=== PATIENT | male | born 1945 | race Caucasian/White ===

== ENCOUNTER 2019-06-11 12:36 | Inpatient (IN) | payer MEDICARE ==
[~2019-06-11] VITALS: Ht 165.1 cm; Wt 54.4 kg
--- NOTE | 2019-06-11 12:54 | NUR ---
Placed in room 6. Placed on electronic device monitor, blood pressure machine and pulse oximeter. To gown for exam. Side rails up.
[2019-06-11 12:55] VITALS: BP_SYST 144
--- NOTE | 2019-06-11 13:00 | NUR ---
Patient is awake, alert, and oriented x1. When attempting to assess the patient her responded with, "Fuck you" and started rambling incoherently. Patient refused to take clothes off and get into gown. He told the EMT, "Don't fucking touch me" when attempting to remove clothing for gown. Addendum: 06/11/19 at 1307 by BECKY Patient was sent from [facility] by Dr. Brumfield for evaluation due to increased ALOC and decline in ADLs. Patient was found wandering into a female patient's room last night and urinated on her floor. He also urinated on the floor of his room and threatened to kill his roommate. Today patient had reduced appetite and fluid intake.
--- NOTE | 2019-06-11 13:25 | NUR ---
ER Dr. Mooney at bedside examining patient.
[2019-06-11] MEDS ORDERED: TAMS-11 PO (13:29)
[2019-06-11] MEDS ORDERED: GABA300T25 PO (13:29)
[2019-06-11] MEDS ORDERED: POLY17PO4 PO (13:29)
[2019-06-11] MEDS ORDERED: ONDA4TAB11 SL (13:29)
[2019-06-11] MEDS ORDERED: THIA100T73 PO (13:29)
[2019-06-11] MEDS ORDERED: METH500T PO (13:29)
[2019-06-11] MEDS ORDERED: DUL5 PO (13:29)
[2019-06-11] MEDS ORDERED: MULT-1117 PO (13:29)
[2019-06-11] MEDS ORDERED: MUC20RT NEB (13:29)
[2019-06-11] MEDS ORDERED: DOCU100T9 PO (13:29)
[2019-06-11] MEDS ORDERED: TRIA15CR3 TD (13:29)
[2019-06-11] MEDS ORDERED: QUET50TA79 PO (13:29)
[2019-06-11] MEDS ORDERED: LEVO75TA98 PO (13:29)
[2019-06-11] MEDS ORDERED: LABE100T6 PO (13:29)
[2019-06-11] MEDS ORDERED: FOLI-43 PO (13:29)
[2019-06-11] MEDS ORDERED: MELA5TAB21 PO (13:29)
[2019-06-11] MEDS ORDERED: ACET325C6 PO (13:29)
[2019-06-11] MEDS ORDERED: SER25 PO (13:29)
[2019-06-11] MEDS ORDERED: AMLO10TA88 PO (13:29)
[2019-06-11] MEDS ORDERED: CALC-1100 PO (13:29)
--- NOTE | 2019-06-11 13:29 | NUR ---
Medication reconciliation completed with information provided by [facility]. Any prior medication reconciliation on file was reviewed and corrected.
[2019-06-11] MEDS ORDERED: DIPHENHYDRAMINE INJ 50 MG/ML VIAL IM ONE (13:45)
[2019-06-11] MEDS ORDERED: HALOPERIDOL LACTATE 5 MG/ML VIAL IM ONE (13:45)
--- NOTE | 2019-06-11 13:52 | NUR ---
Administered Benadryl and Haldol IM as ordered by Dr. Mooney. Patient tolerated the medication well. See eMAR for details.
--- NOTE | 2019-06-11 14:12 | NUR ---
Urine specimen collected.
[2019-06-11 14:43] LABS: BILIRUBIN,URINE NEGATIVE (NEGATIVE); BLOOD, URINE NEGATIVE (NEGATIVE); CLARITY/URINE CLEAR (CLEAR); COLOR,URINE YELLOW (YELLOW); GLUCOSE,URINE NEGATIVE (NEGATIVE); KETONES,URINE NEGATIVE (NEGATIVE); LEUKOCYTE ESTERASE ,URINE NEGATIVE (NEGATIVE); NITRITE, URINE NEGATIVE (NEGATIVE); PH,URINE 6.5 (5.0-8.0); PROTEIN URINE NEGATIVE (NEGATIVE); UROBILINOGEN,URINE 0.2 (0.2-1.0)
[2019-06-11] MEDS ORDERED: KETAMINE 30 MG/3 ML SYRINGE IM ONE (14:45)
--- NOTE | 2019-06-11 15:10 | NUR ---
Administered Ketamine IM as ordered by Dr. Mooney. Patient tolerated the medication well. See eMAR for details.
--- NOTE | 2019-06-11 15:45 | NUR ---
Administered Ketamine IVP as ordered by Dr. Mooney. Patient tolerated the medication well. See eMAR for details.
[2019-06-11] MEDS ORDERED: KETAMINE 30 MG/3 ML SYRINGE IVP ONE (16:00)
[2019-06-11 17:26] LABS: ANION GAP 8 (5-15); BASOPHILS # (AUTO) 0.1 K/uL (0.0-0.2); BASOPHILS % (AUTO) 1.2 % (0.0-2.0); CALCIUM 9.2 mg/dL (8.4-11.0); CHLORIDE 102 mmol/L (98-107); CREATININE 0.76 mg/dL (0.55-1.30); EOSINOPHILS # (AUTO) 0.2 K/uL (0.0-0.4); EOSINOPHILS % (AUTO) 3.8 % (0.0-4.0); GLUCOSE 94 mg/dL (70-99); HEMATOCRIT 36.1 % (36-54); HEMOGLOBIN 11.4 g/dL (14.0-18.0); LYMPHOCYTES # (AUTO) 1.2 K/uL (1.0-5.5); LYMPHOCYTES % (AUTO) 28.2 % (20.5-51.5); MEAN CORPUSCULAR HEMOGLOBIN 23 pg (27-31); MEAN CORPUSCULAR HGB CONC 32 % (32-36); MEAN CORPUSCULAR VOLUME 74 fL (79.0-98.0); MONOCYTES # (AUTO) 0.4 K/uL (0.0-1.0); MONOCYTES % (AUTO) 9.4 % (1.7-9.3); NEUTROPHILS # (AUTO) 2.4 K/uL (1.8-7.7); NEUTROPHILS % (AUTO) 57.4 % (40.0-70.0); PLATELET COUNT (AUTO) 311 K/uL (130-430); POTASSIUM 4.1 mmol/L (3.5-5.1); RED BLOOD CELL COUNT(AUTO) 4.89 MIL/uL (4.2-6.2); RED CELL DISTRIBUTION WIDTH 17.6 % (9.0-15.0); SODIUM SERUM 139 mmol/L (136-145); UREA NITROGEN, BLOOD 14 mg/dL (8-21); WHITE BLOOD COUNT (AUTO) 4.2 K/uL (4.8-10.8)
[2019-06-11 17:30] LABS: INR 1.1 (0.80-1.20); PROTHROMBIN TIME 10.7 SECS (9.5-12.5)
[2019-06-11 17:31] LABS: ALANINE AMINOTRANSFERASE 17 U/L (12-78); ALBUMIN 3.5 g/dL (3.4-4.8); ASPARTATE AMINOTRANSFERASE 17 U/L (10-37); TOTAL BILIRUBIN 0.3 mg/dL (0.0-1.0)
[2019-06-11 17:32] LABS: ALCOHOL, BLOOD < 3 mg/dL (<10)
--- NOTE | 2019-06-11 18:10 | NUR ---
Administered Haldol IVP as ordered by Dr. Mooney. Patient tolerated the medication well. See eMAR for details.
[2019-06-11] MEDS ORDERED: HALOPERIDOL LACTATE 5 MG/ML VIAL IVP ONE (18:15)
--- NOTE | 2019-06-11 18:15 | NUR ---
Administered Ketamine 30mg IVP as ordered by Dr. Mooney. Patient tolerated the medication well. See eMAR for details.
--- NOTE | 2019-06-11 18:18 | NUR ---
Patient is taken to CT via gurney, in stable condition.
[2019-06-11] MEDS ORDERED: HALOPERIDOL LACTATE 5 MG/ML VIAL ONE (18:26)
--- NOTE | 2019-06-11 18:32 | NUR ---
Patient back from CT, in stable condition.
--- NOTE | 2019-06-11 19:03 | NUR ---
Received admiting orders from Dr. Greenberg.
--- NOTE | 2019-06-11 19:23 | NUR ---
Report given and care transferred to DANAE Neal.
[2019-06-11] MEDS ORDERED: MAGNESIUM SULFATE 50 ML IV PRN (19:30)
[2019-06-11] MEDS ORDERED: DOCUSATE SODIUM 100 MG CAPSULE PO PRN (19:30)
[2019-06-11] MEDS ORDERED: ZOLPIDEM TARTRATE 5 MG TABLET PO PRN (19:30)
[2019-06-11] MEDS ORDERED: POTASSIUM CHLORIDE 20 MEQ TAB.PRT.SR PO PRN (19:30)
[2019-06-11] MEDS ORDERED: MUPIROCIN 2% TOPICAL OINTMENT 22 GM NS PRN (19:30)
[2019-06-11] MEDS ORDERED: MORPHINE 2 MG/ML INJ. SYRINGE IVP PRN ×2 (19:30)
[2019-06-11] MEDS ORDERED: ONDANSETRON HCL 4 MG/2 ML VIAL IVP PRN (19:30)
[2019-06-11] MEDS ORDERED: LORazepam 2 MG/ML VIAL IVP PRN (19:30)
[2019-06-11] MEDS ORDERED: ACETAMINOPHEN 325 MG TABLET PO PRN (19:30)
--- NOTE | 2019-06-11 19:30 | NUR ---
ASSUMED CARE. RECEIVED AWAKE,ALERT,VERBALLY RESPONSIVE,CONFUSED. AFEBRILE, NOT IN ACUTE DISTRESS. NO PAIN OR DISCOMFORT NOTED. ADMITTED TO [facility] FLOOR FOR ACUTE PSYCHOSIS. VS STABLE. WILL CONTINUE TO MONITOR.
--- NOTE | 2019-06-11 19:55 | NUR ---
REPORT GIVEN TO JOHN FINK. PT. GOING TO ROOM 132-A.
--- NOTE | 2019-06-11 20:05 | NUR ---
ATTEMPETD COLLECTING MRSA SWAB BUT PT.REFUSED AND BEING COMBATIVE. WILL INFORM TELEMETRY NURSE.
--- NOTE | 2019-06-11 20:36 | NUR ---
TRANSFERRED TO FLOOR VIA [facility]. TRANSFER UNEVENTFUL.
--- NOTE | 2019-06-11 20:42 | NUR ---
ADMIT NOTE Received pt from ER to the floor with a diagnosis of ACUTE PSYCHOSIS. Pt placed to room 132-A. Admission process initiated. patient oriented to pain management, safety and call light-teach back done.
[2019-06-11 20:45] VITALS: BP_SYST 135
--- NOTE | 2019-06-11 21:00 | NUR ---
ADMITTING PHYSICAL ASSESSMENT NOTES; took over admission from nurse Conrado, pt. awake. alert but confused and disoriented, oriented to his room and where he is. pt. settled in bed, getting anxious and restless, does not want to be touch or remove his pajamas and blanket, able to turn to sides to remove wet sheet from ER, no skin breakdown noted, remove white pad and placed on top of him instead. on fall risk precaution/bed alarm on. pt. room close to nurses station, unable to use call light.
--- NOTE | 2019-06-11 22:10 | NUR ---
NOTES: pt. getting really anxious and restless, IV NS started and wrapped with gauze and removed it and also trying to pull out his IV. pt. pushing me away and getting combative, medicated with IV Ativan with Conrado and nursing security supervisor helping to hold him.
[2019-06-11] MEDS: NACL 0.9% 1,000 ML IV SCH (22:13)
--- NOTE | 2019-06-11 22:30 | NUR ---
NOTES: pt. calm and asleep now. will continue to monitor.
[2019-06-11] MEDS: HEPARIN SODIUM,PORCINE 5000 UNITS/ML VIAL SUBCUT SCH (23:11)
[2019-06-12] VITALS: BP_SYST 138
--- NOTE | 2019-06-12 00:30 | NUR ---
NOTES: pt. remain sound asleep. no distress. condition observed. making round every hour since pt. unable to use call light.
--- NOTE | 2019-06-12 02:30 | NUR ---
NOTES: condition unchanged. still sleeping soundly. continue to monitor. fall risk precaution.
--- NOTE | 2019-06-12 04:19 | NUR ---
CONSULT: CONSULT CALLED FOR I SPOKE WITH BHAVANI RIVERA REASON FOR CONSULT: ACUTE PSYCHOSIS REQUESTING CONSULT: DR. CASTILLO GEOSPATIAL ANALYST PHONE NUMBER: [phone] Addendum: 06/12/19 at 0459 by Corinne Ryan RI/ FACE SHEET FAXED OVER OFFICE
--- NOTE | 2019-06-12 04:30 | NUR ---
NOTES: pt. condition unchanged. remain sleeping when checked.
--- NOTE | 2019-06-12 05:30 | NUR ---
CLOSING NOTES; pt. sound asleep. able to get MRSA swab earlier by nurse Conrado. condition guarded. for further care and assistance. on fall risk precaution. IVF patent and continuous. will endorse to day shift. no acute distress, on room air, face flushed. Addendum: 06/12/19 at 0703 by Dixie Huffman RN wrong time , closing notes @ [phone]
--- NOTE | 2019-06-12 05:45 | NUR ---
NOTES: checked if pt. wet, pretty dry, still covered up with his blanket and joseph pad. awakened for VS, able to take it. went back to sleep.
--- NOTE | 2019-06-12 06:30 | NUR ---
CLOSING NOTES: see notes @ [id number].
--- NOTE | 2019-06-12 07:15 | NUR ---
OPENING NOTES PT AWAKE AND CONFUSED. RE-ORIENTED PT TO PERSON, PLACE, AND TIME. UNABLE TO ANSWER QUESTIONS APPROPRIATELY. NONLABORED BREATHING NOTED ON ROOM AIR, O2 AT 96%. NO ACUTE DISTRESS NOTED. PT DENIES PAIN AT THIS TIME. PT CLEAN AND DRY. BED LOCKED AND IN LOWEST POSITION. ALL NEEDS MET. CALL LIGHT IN REACH. FALL AND ASPIRATION PRECAUTIONS IN PLACE. CONTINUE TO MONITOR.
[2019-06-12 08:00] VITALS: BP_SYST 130
[2019-06-12] MEDS: HEPARIN SODIUM,PORCINE 5000 UNITS/ML VIAL SUBCUT SCH ×2 (08:55→09:00)
--- NOTE | 2019-06-12 08:55 | NUR ---
ROUTINE MEDS ROUTINE MEDS ADMINISTERED ORDERED PER MD, EDUCATION GIVEN, TOLERATED WELL. PT REFUSED HEPARIN MEDICATION, EDUCATED PT ON RISKS AND BENEFITS FOR 30 MINUTES, ASKED THREE TIMES. PT CONTINUE TO REFUSE. HOB ELEVATED. NO ACUTE DISTRESS NOTED. ALL NEEDS MET. CALL LIGHT IN REACH. CONTINUE TO MONITOR.
[2019-06-12] MEDS: NACL 0.9% 1,000 ML IV SCH (08:56)
[2019-06-12] MEDS ORDERED: amLODIPine BESYLATE 10 MG TABLET PO SCH (09:00)
[2019-06-12] MEDS ORDERED: TAMSULOSIN HCL 0.4 MG CAP PO SCH (09:00)
[2019-06-12] MEDS ORDERED: QUEtiapine FUMARATE 25 MG TABLET PO SCH (09:00)
[2019-06-12] MEDS ORDERED: LEVOTHYROXINE SODIUM 0.075 MG TABLET PO SCH (09:00)
--- NOTE | 2019-06-12 09:08 | NUR ---
Nutrition Update Luis Eduardo Scale 16 noted. Pt admitted for acute psychosis. Diet: regular BMI: 20 kg/m2 RD to follow per nutrition care standards.
--- NOTE | 2019-06-12 11:00 | NUR ---
ROUNDS PT AWAKE AND CONFUSED. RE-ORIENTED PT. NO ACUTE DISTRESS NOTED. ALL NEEDS MET. CALL LIGHT IN REACH. CONTINUE TO MONITOR.
--- NOTE | 2019-06-12 11:50 | NUR ---
Discharge Planing: DCP arranged transportation with [facility] ([phone]) 3:00pm P/U BLS to [facility] ([phone]) Rm 37B. Nurse made aware and patient packet taken to nurse station.
--- NOTE | 2019-06-12 12:00 | NUR ---
ROUNDS PT SITTING UP IN BED EATING LUNCH, TOLERATING WELL. VITAL SIGNS STABLE. NO ACUTE DISTRESS NOTED. ALL NEEDS MET. CALL LIGHT IN REACH. CONTINUE TO MONITOR.
[2019-06-12 12:22] VITALS: BP_SYST 112
[2019-06-12 13:47] VITALS: BP_SYST 125
--- NOTE | 2019-06-12 14:00 | NUR ---
ROUNDS PT AWAKE AND CONFUSED. ASKED FOR ORANGE JUICE, ADMINISTERED TO PT ORANGE JUICE. NONLABORED BREATHING NOTED ON ROOM AIR. NO ACUTE DISTRESS NOTED. ALL NEEDS MET. CALL LIGHT IN REACH. CONTINUE TO MONITOR.
--- NOTE | 2019-06-12 14:17 | NUR ---
SPOKE TO DANAE CABRERA FROM [facility] FOR TRANSFER
--- NOTE | 2019-06-12 14:18 | NUR ---
SS NOTES/PSYCH INFO: REFRIGERATOR TESTER met with patient who appears to be confused and is unable to verify demographic information with me as well as his . REFRIGERATOR TESTER phoned [facility] @ [phone] and spoke with nurse Eliezer who stated they don't have any emergency contact on patient and stated pt has been with them since March. Eliezer stated pt has refused psych consult with Dr. Gonzalez at their facility. Pt will be discharged back to [facility] today at 3PM.
--- NOTE | 2019-06-12 14:53 | NUR ---
D/C Patient Patient given medication reconciliation form and D/C instructions. Exit Care provided. Patient verbalized understanding. MD discussed with patient the results and treatment provided. PT UNABLE TO AMBULATE, EXITED WITH [facility] WITH AMBULANCE. Patient in stable condition, ID band removed. IV catheter removed, intact and dressing applied, no active bleeding. Patient educated on pain management. All belongings sent with patient.
== END 2019-06-12 14:53 | DRG 885 ==
LOC: SED 12:36 → SMU 18:55
PROVIDERS: ADMIT General Practice; ATTEND General Practice
DX: F23 Brief psychotic disorder (principal); G30.9 Alzheimer's disease, unspecified; F02.80 Dementia in other diseases classified elsewhere, unspecified severity, without behavioral disturbance, psychotic disturbance, mood disturbance, and anxiety; E03.9 Hypothyroidism, unspecified; F31.9 Bipolar disorder, unspecified; I10 Essential (primary) hypertension; N40.1 Benign prostatic hyperplasia with lower urinary tract symptoms; F41.9 Anxiety disorder, unspecified; G62.9 Polyneuropathy, unspecified; Z79.899 Other long term (current) drug therapy; Z98.1 Arthrodesis status
CPT/HCPCS: 36415; 70450-TC; 71045; 80053; 81003; 84443-TC; 84484; 85025; 85610-TC; 85730-TC; 87081; 93005; 96372; 96374; 96375; 99285; G0482; J1200; J1630; J1644; J2060; J7030

== ENCOUNTER 2023-05-16 12:15 | Inpatient (IN) | payer MEDICAID, MEDICARE ==
[~2023-05-16] VITALS: Ht 167.6 cm; Wt 61.2 kg
[~2023-05-16 12:15] MED LIST: ACET325C6 PO; AMLO10TA88 PO; CALC-1100 PO; DOCU100T9 PO; DUL5 PO; FOLI-43 PO; GABA300T25 PO; LABE100T9 PO; LEVO75TA98 PO; MELA5TAB21 PO; MUC20RT NEB; MULT-1117 PO; POLY17PO4 PO; QUET50TA92 PO; SER25 PO; TAMS-11 PO; THIA100T73 PO; TRIA15CR3 TD
[2023-05-16 12:18] VITALS: BP_SYST 110; PULSE 81; RESP 18; TEMP 98.2; O2SAT 96
[2023-05-16] MEDS ORDERED: MIDAZOLAM HCL 2 MG/2 ML VIAL (VERSED) ONE (12:55)
[2023-05-16 13:06] LABS: BASOPHILS # (AUTO) 0.1 K/uL (0.0-0.2); BASOPHILS % (AUTO) 0.8 % (0.0-2.0); EOSINOPHILS # (AUTO) 0.1 K/uL (0.0-0.4); EOSINOPHILS % (AUTO) 1.6 % (0.0-4.0); HEMATOCRIT 40.4 % (36-54); HEMOGLOBIN 13.7 g/dL (14.0-18.0); LYMPHOCYTES # (AUTO) 1.1 K/uL (1.0-5.5); LYMPHOCYTES % (AUTO) 13.2 % (20.5-51.5); MEAN CORPUSCULAR HEMOGLOBIN 27 pg (27-31); MEAN CORPUSCULAR HGB CONC 34 % (32-36); MEAN CORPUSCULAR VOLUME 81 fL (79.0-98.0); MONOCYTES # (AUTO) 0.9 K/uL (0.0-1.0); MONOCYTES % (AUTO) 10.8 % (1.7-9.3); NEUTROPHILS # (AUTO) 5.9 K/uL (1.8-7.7); NEUTROPHILS % (AUTO) 73.6 % (40.0-70.0); PLATELET COUNT (AUTO) 335 K/uL (130-430)
[2023-05-16] MEDS: MIDAZOLAM HCL 5 MG/5 ML VIAL IVP ONE (13:07)
[2023-05-16] MEDS: HALOPERIDOL LACTATE 5 MG/ML VIAL IVP ONE ×2 (13:32→14:09)
[2023-05-16 13:35] LABS: ANION GAP 7 (5-15); CALCIUM 9.4 mg/dL (8.4-11.0); CARBON DIOXIDE 26 mmol/L (23-29); CHLORIDE 99 mmol/L (98-107); CREATININE 0.89 mg/dL (0.55-1.30); GLUCOSE 98 mg/dL (74-106); SODIUM SERUM 132 mmol/L (136-145); UREA NITROGEN, BLOOD 21 mg/dL (8-21)
[2023-05-16 13:46] LABS: ALCOHOL, BLOOD < 3 mg/dL (<10)
[2023-05-16] MEDS: DIPHENHYDRAMINE INJ 50 MG/ML VIAL IVP ONE (14:09)
[2023-05-16] MEDS: OLANZapine IntraMuscular 10 MG VIAL (FOR I.M. INJECTION ONLY) IM ONE (17:00)
[2023-05-16 18:33] LABS: BILIRUBIN,URINE NEGATIVE (NEGATIVE); BLOOD, URINE 3+ (NEGATIVE); CLARITY/URINE CLEAR (CLEAR); COLOR,URINE YELLOW (YELLOW); GLUCOSE,URINE NEGATIVE (NEGATIVE); KETONES,URINE NEGATIVE (NEGATIVE); LEUKOCYTE ESTERASE ,URINE 2+ (NEGATIVE); NITRITE, URINE NEGATIVE (NEGATIVE); PROTEIN URINE NEGATIVE (NEGATIVE); UROBILINOGEN,URINE 0.2 (0.2-1.0)
[2023-05-16 18:59] LABS: BACTERIA,URINE MODERATE /HPF (None Seen)
[2023-05-16] MEDS ORDERED: ZOLPIDEM TARTRATE 5 MG TABLET PO PRN (19:15)
[2023-05-16] MEDS ORDERED: LORazepam 2 MG/ML VIAL IVP PRN (19:15)
[2023-05-16] MEDS ORDERED: ONDANSETRON HCL 4 MG/2 ML VIAL IVP PRN (19:15)
[2023-05-16] MEDS ORDERED: MAGNESIUM SULFATE 50 ML IV PRN (19:15)
[2023-05-16] MEDS ORDERED: DOCUSATE SODIUM 100 MG CAPSULE PO PRN (19:15)
[2023-05-16] MEDS ORDERED: MORPHINE 2 MG/ML INJ. SYRINGE IVP PRN ×2 (19:15)
[2023-05-16] MEDS ORDERED: POTASSIUM CHLORIDE 20 MEQ TABLET.ER PO PRN (19:15)
[2023-05-16] MEDS ORDERED: MUPIROCIN 2% TOPICAL OINTMENT 22 GM NS PRN (19:15)
[2023-05-16] MEDS ORDERED: ACETAMINOPHEN 500 MG TABLET PO PRN (19:30)
[2023-05-16] MEDS: LABETALOL HCL 100 MG TABLET PO SCH (21:00)
[2023-05-16] MEDS: MELATONIN 5 MG TABLET PO SCH (21:00)
[2023-05-16] MEDS: NACL 0.9% 1,000 ML IV SCH (22:37)
[2023-05-16] MEDS: cefTRIAXone 1 GM IVPB PREMIX 50 ML IV ONE (23:54)
[2023-05-17] MEDS ORDERED: cefTRIAXone 1 GM IVPB PREMIX 50 ML IV ONE (01:09)
[2023-05-17 03:00] LABS: ANION GAP 9 (5-15); CALCIUM 8.7 mg/dL (8.4-11.0); CARBON DIOXIDE 23 mmol/L (23-29); CHLORIDE 105 mmol/L (98-107); CREATININE 0.77 mg/dL (0.55-1.30); GLUCOSE 96 mg/dL (74-106); POTASSIUM 4.2 mmol/L (3.5-5.1); SODIUM SERUM 137 mmol/L (136-145); UREA NITROGEN, BLOOD 15 mg/dL (8-21)
[2023-05-17 03:12] LABS: BASOPHILS % (AUTO) 0.3 % (0.0-2.0); EOSINOPHILS % (AUTO) 0.2 % (0.0-4.0); HEMATOCRIT 41.4 % (36-54); HEMOGLOBIN 13.8 g/dL (14.0-18.0); LYMPHOCYTES % (AUTO) 7.6 % (20.5-51.5); MEAN CORPUSCULAR HEMOGLOBIN 27 pg (27-31); MEAN CORPUSCULAR HGB CONC 33 % (32-36); MEAN CORPUSCULAR VOLUME 81 fL (79.0-98.0); MONOCYTES # (AUTO) 1.2 K/uL (0.0-1.0); MONOCYTES % (AUTO) 8.8 % (1.7-9.3); NEUTROPHILS % (AUTO) 83.1 % (40.0-70.0); PLATELET COUNT (AUTO) 335 K/uL (130-430); RED BLOOD CELL COUNT(AUTO) 5.11 MIL/uL (4.2-6.2); WHITE BLOOD COUNT (AUTO) 13.2 K/uL (4.8-10.8)
[2023-05-17 03:29] LABS: INR 1.1 (0.80-1.20); PROTHROMBIN TIME 11.2 SECS (9.5-12.5)
[2023-05-17] MEDS: HEPARIN SODIUM,PORCINE 5,000 UNITS/ML VIAL SUBCUT SCH (05:26)
[2023-05-17 09:02] VITALS: BP_SYST 132; PULSE 81; RESP 22; TEMP 97.2; O2SAT 98
[2023-05-17] MEDS: LEVOTHYROXINE SODIUM 0.075 MG TABLET PO SCH (10:11)
[2023-05-17] MEDS: TAMSULOSIN HCL 0.4 MG CAP PO SCH (10:11)
[2023-05-17] MEDS: QUEtiapine FUMARATE 25 MG TABLET PO SCH (10:11)
[2023-05-17] MEDS: LABETALOL HCL 100 MG TABLET PO SCH (10:11)
[2023-05-17] MEDS: amLODIPine BESYLATE 10 MG TABLET PO SCH (10:12)
[2023-05-17] MEDS ORDERED: BISA10SU77 RC (10:41)
[2023-05-17 12:35] VITALS: BP_SYST 148; PULSE 55; RESP 16; TEMP 97.9; O2SAT 96
[2023-05-17] MEDS ORDERED: ACET-73 PO (13:52)
[2023-05-17] MEDS ORDERED: QUET50TA24 PO (15:23)
[2023-05-17] MEDS ORDERED: HYDR-3917 PO (15:24)
[2023-05-17 16:00] VITALS: BP_SYST 139; PULSE 65; RESP 16; TEMP 97.5; O2SAT 99
[2023-05-17] MEDS: cefTRIAXone 1 GM in D5W 50 ML IV SCH (18:58)
[2023-05-17 20:00] VITALS: BP_SYST 119; PULSE 74; RESP 16; TEMP 97.1; O2SAT 96
[2023-05-18 00:42] VITALS: BP_SYST 156; PULSE 100; RESP 18; TEMP 97.1; O2SAT 95
[2023-05-18 06:06] LABS: BASOPHILS # (AUTO) 0.1 K/uL (0.0-0.2); BASOPHILS % (AUTO) 0.6 % (0.0-2.0); EOSINOPHILS # (AUTO) 0.1 K/uL (0.0-0.4); EOSINOPHILS % (AUTO) 0.8 % (0.0-4.0); HEMATOCRIT 43.3 % (36-54); HEMOGLOBIN 14.3 g/dL (14.0-18.0); LYMPHOCYTES % (AUTO) 10.3 % (20.5-51.5); MEAN CORPUSCULAR HEMOGLOBIN 27 pg (27-31); MEAN CORPUSCULAR HGB CONC 33 % (32-36); MEAN CORPUSCULAR VOLUME 82 fL (79.0-98.0); MONOCYTES # (AUTO) 0.9 K/uL (0.0-1.0); NEUTROPHILS # (AUTO) 7.6 K/uL (1.8-7.7); NEUTROPHILS % (AUTO) 79.3 % (40.0-70.0); PLATELET COUNT (AUTO) 341 K/uL (130-430); RED BLOOD CELL COUNT(AUTO) 5.31 MIL/uL (4.2-6.2); RED CELL DISTRIBUTION WIDTH 15.5 % (9.0-15.0); WHITE BLOOD COUNT (AUTO) 9.6 K/uL (4.8-10.8)
[2023-05-18 06:45] LABS: ANION GAP 12 (5-15); CALCIUM 9.3 mg/dL (8.4-11.0); CARBON DIOXIDE 25 mmol/L (23-29); CHLORIDE 101 mmol/L (98-107); CREATININE 0.92 mg/dL (0.55-1.30); GLUCOSE 71 mg/dL (74-106); POTASSIUM 4.3 mmol/L (3.5-5.1); SODIUM SERUM 138 mmol/L (136-145); UREA NITROGEN, BLOOD 17 mg/dL (8-21)
[2023-05-18 08:00] VITALS: BP_SYST 161; PULSE 110; RESP 20; TEMP 97.4; O2SAT 95
[2023-05-18 12:00] VITALS: BP_SYST 149; PULSE 102; RESP 18; TEMP 98.7; O2SAT 97
[2023-05-18 16:00] VITALS: BP_SYST 142; PULSE 110; RESP 18; TEMP 98.8; O2SAT 95
[2023-05-18 20:00] VITALS: BP_SYST 139; PULSE 81; RESP 18; TEMP 98.8; O2SAT 96
[2023-05-19 00:10] VITALS: BP_SYST 141; PULSE 92; RESP 20; TEMP 97.7; O2SAT 97
[2023-05-19 05:58] LABS: BASOPHILS % (AUTO) 0.4 % (0.0-2.0); EOSINOPHILS # (AUTO) 0.1 K/uL (0.0-0.4); EOSINOPHILS % (AUTO) 0.7 % (0.0-4.0); HEMATOCRIT 38.5 % (36-54); HEMOGLOBIN 12.8 g/dL (14.0-18.0); LYMPHOCYTES # (AUTO) 0.8 K/uL (1.0-5.5); LYMPHOCYTES % (AUTO) 8.6 % (20.5-51.5); MEAN CORPUSCULAR HEMOGLOBIN 27 pg (27-31); MEAN CORPUSCULAR HGB CONC 33 % (32-36); MEAN CORPUSCULAR VOLUME 82 fL (79.0-98.0); MONOCYTES % (AUTO) 10.3 % (1.7-9.3); NEUTROPHILS # (AUTO) 7.8 K/uL (1.8-7.7); PLATELET COUNT (AUTO) 319 K/uL (130-430); RED BLOOD CELL COUNT(AUTO) 4.72 MIL/uL (4.2-6.2); RED CELL DISTRIBUTION WIDTH 15.5 % (9.0-15.0); WHITE BLOOD COUNT (AUTO) 9.8 K/uL (4.8-10.8)
[2023-05-19 06:04] LABS: ANION GAP 12 (5-15); CALCIUM 8.9 mg/dL (8.4-11.0); CARBON DIOXIDE 23 mmol/L (23-29); CHLORIDE 103 mmol/L (98-107); CREATININE 0.89 mg/dL (0.55-1.30); GLUCOSE 81 mg/dL (74-106); POTASSIUM 3.7 mmol/L (3.5-5.1); SODIUM SERUM 138 mmol/L (136-145); UREA NITROGEN, BLOOD 20 mg/dL (8-21)
[2023-05-19 08:00] VITALS: BP_SYST 134; PULSE 79; RESP 17; TEMP 97.1; O2SAT 79
[2023-05-19 12:01] VITALS: BP_SYST 134; PULSE 79; RESP 17; TEMP 97.1; O2SAT 79
[2023-05-19 16:16] VITALS: BP_SYST 138; PULSE 71; RESP 18; TEMP 98.6; O2SAT 73
[2023-05-19 20:00] VITALS: BP_SYST 122; PULSE 73; RESP 18; TEMP 98.4; O2SAT 94
[2023-05-20 01:21] VITALS: BP_SYST 129; PULSE 79; RESP 18; TEMP 98.6; O2SAT 95
[2023-05-20 06:06] LABS: BASOPHILS % (AUTO) 0.6 % (0.0-2.0); EOSINOPHILS # (AUTO) 0.1 K/uL (0.0-0.4); HEMATOCRIT 34.1 % (36-54); HEMOGLOBIN 11.2 g/dL (14.0-18.0); LYMPHOCYTES # (AUTO) 1.1 K/uL (1.0-5.5); LYMPHOCYTES % (AUTO) 16.6 % (20.5-51.5); MEAN CORPUSCULAR HEMOGLOBIN 27 pg (27-31); MEAN CORPUSCULAR HGB CONC 33 % (32-36); MEAN CORPUSCULAR VOLUME 82 fL (79.0-98.0); MONOCYTES # (AUTO) 0.8 K/uL (0.0-1.0); NEUTROPHILS # (AUTO) 4.4 K/uL (1.8-7.7); NEUTROPHILS % (AUTO) 68.8 % (40.0-70.0); PLATELET COUNT (AUTO) 271 K/uL (130-430); RED BLOOD CELL COUNT(AUTO) 4.18 MIL/uL (4.2-6.2); RED CELL DISTRIBUTION WIDTH 15.3 % (9.0-15.0); WHITE BLOOD COUNT (AUTO) 6.4 K/uL (4.8-10.8)
[2023-05-20 06:48] LABS: ANION GAP 7 (5-15); CALCIUM 8.3 mg/dL (8.4-11.0); CARBON DIOXIDE 25 mmol/L (23-29); CHLORIDE 108 mmol/L (98-107); CREATININE 0.74 mg/dL (0.55-1.30); GLUCOSE 83 mg/dL (74-106); POTASSIUM 3.6 mmol/L (3.5-5.1); SODIUM SERUM 140 mmol/L (136-145); UREA NITROGEN, BLOOD 16 mg/dL (8-21)
[2023-05-20 08:43] VITALS: BP_SYST 105; PULSE 44; RESP 18; TEMP 97.7; O2SAT 97
[2023-05-20 11:10] VITALS: BP_SYST 156; PULSE 72; RESP 16; TEMP 98.1; O2SAT 96
[2023-05-20 15:07] VITALS: BP_SYST 139; PULSE 66; RESP 15; TEMP 97; O2SAT 93
[2023-05-20 19:00] VITALS: BP_SYST 132; PULSE 82; RESP 18; TEMP 97.7; O2SAT 98; O2SAT 99
[2023-05-20 20:00] VITALS: BP_SYST 136; PULSE 86; RESP 18; TEMP 97.7; O2SAT 98
[2023-05-21] VITALS: BP_SYST 134; PULSE 86; RESP 18; TEMP 97.7; O2SAT 99
[2023-05-21 04:00] VITALS: BP_SYST 134; PULSE 86; RESP 18; TEMP 97.7; O2SAT 98
[2023-05-21 06:59] LABS: BASOPHILS % (AUTO) 0.6 % (0.0-2.0); EOSINOPHILS # (AUTO) 0.1 K/uL (0.0-0.4); EOSINOPHILS % (AUTO) 0.7 % (0.0-4.0); HEMATOCRIT 37.7 % (36-54); HEMOGLOBIN 12.5 g/dL (14.0-18.0); LYMPHOCYTES # (AUTO) 0.7 K/uL (1.0-5.5); LYMPHOCYTES % (AUTO) 8.6 % (20.5-51.5); MEAN CORPUSCULAR HEMOGLOBIN 27 pg (27-31); MEAN CORPUSCULAR HGB CONC 33 % (32-36); MEAN CORPUSCULAR VOLUME 81 fL (79.0-98.0); MONOCYTES % (AUTO) 11.9 % (1.7-9.3); NEUTROPHILS # (AUTO) 6.7 K/uL (1.8-7.7); NEUTROPHILS % (AUTO) 78.2 % (40.0-70.0); PLATELET COUNT (AUTO) 313 K/uL (130-430); RED BLOOD CELL COUNT(AUTO) 4.65 MIL/uL (4.2-6.2); RED CELL DISTRIBUTION WIDTH 15.7 % (9.0-15.0); WHITE BLOOD COUNT (AUTO) 8.5 K/uL (4.8-10.8)
[2023-05-21 07:24] LABS: ANION GAP 13 (5-15); CALCIUM 8.9 mg/dL (8.4-11.0); CARBON DIOXIDE 22 mmol/L (23-29); CHLORIDE 101 mmol/L (98-107); CREATININE 0.86 mg/dL (0.55-1.30); GLUCOSE 73 mg/dL (74-106); POTASSIUM 3.7 mmol/L (3.5-5.1); SODIUM SERUM 136 mmol/L (136-145); UREA NITROGEN, BLOOD 14 mg/dL (8-21)
[2023-05-21 08:00] VITALS: O2SAT 94
[2023-05-21 08:43] VITALS: BP_SYST 100; PULSE 139; RESP 18; TEMP 97.9; O2SAT 94
[2023-05-21 11:28] VITALS: BP_SYST 103; PULSE 107; RESP 16; TEMP 99.6; O2SAT 93
[2023-05-21 12:46] VITALS: BP_SYST 113; PULSE 109; RESP 20; TEMP 99; O2SAT 98
== END 2023-05-21 13:35 | DRG 720 ==
LOC: SED 12:15 → SMU 19:08
PROVIDERS: ADMIT General Practice; ATTEND General Practice
DX: A41.9 Sepsis, unspecified organism (principal); G93.41 Metabolic encephalopathy; G30.9 Alzheimer's disease, unspecified; I95.9 Hypotension, unspecified; E87.1 Hypo-osmolality and hyponatremia; F02.80 Dementia in other diseases classified elsewhere, unspecified severity, without behavioral disturbance, psychotic disturbance, mood disturbance, and anxiety; N39.0 Urinary tract infection, site not specified; N40.0 Benign prostatic hyperplasia without lower urinary tract symptoms; J44.9 Chronic obstructive pulmonary disease, unspecified; I10 Essential (primary) hypertension; F41.9 Anxiety disorder, unspecified; G62.9 Polyneuropathy, unspecified; F39 Unspecified mood [affective] disorder; Z79.1 Long term (current) use of non-steroidal anti-inflammatories (NSAID); Z79.899 Other long term (current) drug therapy
CPT/HCPCS: 36415; 70450-TC; 71045; 80048; 81000; 81001; 81015; 83037; 83605; 83735; 84443; 84484; 85025; 85610; 85730; 87040; 87081; 87086; 93005; 96372; 96374; 96375; 97110-GP; 97530-GP; 99285; G0482; J0696; J1200; J1630; J1644; J2250; J3465; J3490; J7060